=== PATIENT | female | born 2000 | race Caucasian/White ===

== ENCOUNTER 2023-06-19 21:21 | Outpatient (REF) | payer OTHER, SELFPAY ==
[2023-06-24 08:08] LABS: Age Gdln ACOG Testing Note (.); IGP, rfx Aptima HPV ASCU Note (.)
== END 2023-06-19 21:22 | disposition home or self-care (01) ==
LOC: LAB 21:21
PROVIDERS: Visit Provider Physician Assistant
DX: Z01.419 Encounter for gynecological examination (general) (routine) without abnormal findings (principal)
CPT/HCPCS: G0145

== ENCOUNTER 2023-12-10 10:18 | Outpatient (OUT) | payer OTHER, SELFPAY ==
--- NOTE | 2023-12-10 10:30 | ECG_ITS ---
[facility] Test Date: 2023-12-10 Pat Name: KECIA NOEL Department: Room: - Gender: Female Hiv Nurse: : 2000 Requested By: Kelsey Mcnair Order Number: [id number] Reading MD: ELIER HERNANDEZ Measurements Intervals [place] Rate: 84 P: 15 OR: 136 QRS: 73 QRSD: 96 T: 43 QT: 386 QTc: 456 Interpretive Statements SINUS RHYTHM INCOMPLETE RIGHT BUNDLE BRANCH BLOCK [90+ ms QRS DURATION, TERMINAL R IN V1/V2, 40+ ms S IN I/aVL/V4/V5/V6] No previous ECG available for comparison Electronically Signed On 12-10-2023 23:09:00 EDT by ELIER HERNANDEZ
== END 2023-12-10 10:19 | disposition home or self-care (01) ==
LOC: CARD 10:20
PROVIDERS: Visit Provider Family Medicine
DX: R42 Dizziness and giddiness (principal)
CPT/HCPCS: 93005

== ENCOUNTER 2024-01-02 07:57 | Outpatient (OUT) | payer OTHER, SELFPAY ==
--- NOTE | 2024-01-02 08:00 | CA_ITS ---
Patient Name: KECIA NOEL MR#: [id number] : 2000 Exam Date: 01/02/2024 Ordering Doctor: DR JASON DAVID ECHOCARDIOGRAM REPORT PROCEDURE: CA ECHO DOPPLER COMPLETE INDICATIONS: Abnormal ECG, tachycardia, dizziness, vape COMPARISON: None. DESCRIPTION: COMPLETE ECHOCARDIOGRAM Real-time transthoracic echocardiography with 2D, M-mode, spectral and color flow Doppler performed. QUALITY: Technically difficult due patient's condition 68 , 247#, BSA 2.24 m2, BP 128/74 LEFT VENTRICLE: Normal chamber size. Normal left ventricular wall thickness. LV EF: Global left ventricular systolic function is normal; visually estimated ejection fraction 60 to 65%. DIASTOLIC: Normal diastolic function. ATRIAL SEPTUM: Inadequately seen. LEFT ATRIUM: Normal chamber size. RIGHT ATRIUM: Normal chamber size. RIGHT VENTRICLE: Normal chamber size. Normal right ventricular systolic function. TRICUSPID VALVE: Normal mobility and thickness. No stenosis with no regurgitation. Unable to estimate right-sided pressures due to lack of measurable tricuspid regurgitation. MITRAL VALVE: Normal mobility and thickness. No evidence of mitral valve stenosis. There is no mitral annular calcification. Trivial mitral regurgitation. AORTIC VALVE: Normal trileaflet appearance. No visible sclerosis. Normal leaflet mobility. No evidence of aortic valve stenosis. No aortic regurgitation. AORTIC ROOT: Normal diameter and appearance. PULMONIC VALVE: Normal thickness and mobility. No stenosis. No regurgitation. PERICARDIUM: Anterior free space; trivial effusion versus fat pad. IVC: Not well visualized. CONCLUSION: 1. Global left ventricular systolic function is normal; visually estimated ejection fraction is 60 to 65% 2. Normal right ventricular size and systolic function 3. Normal diastolic function 4. No significant valvular abnormalities 5. Anterior free space; trivial effusion versus fat pad Adult Echocardiography Procedure Report Left Ventricle LVEDD (3.7 - 5.6 cm): 4.46 cm LVESD (2.2 - 4.0 cm): 2.76 cm LVIVS thickness (0.6 - 1.2 cm): 0.90 cm LVPW thickness (0.5 - 1.0 cm): 0.97 cm E - e': 3.80 LVOT Max Gradient: 3.34 mm[Hg] LVOT Area (cm2): 0.91 m/s Peak Velocity (LVOT): 0.91 m/s Mean Velocity (LVOT): 0.62 m/s LVOT Diameter 2.08 cm Left Atrium LA Volume Index (2D A2C): 20.71 ml/m2 Left Atrium Systolic Dimension: 3.52 cm Mitral Valve MV E to A Ratio: 1.62, 1.79 Right Ventricle Aorta AO Root Diam: 2.88 cm Aortic Valve AoV Area (Peak Greg): 2.70 cm2, 2.70 cm2 AoV Area (VTI): 2.71 cm2, 2.71 cm2 Peak Velocity(Antegrade Flow): 1.15 m/s Peak Gradient(Antegrade Flow): 5.27 mm[Hg] Mean Velocity(Antegrade Flow): 0.76 m/s Mean Gradient(Antegrade Flow): 2.72 mm[Hg] Velocity Time Integral: 21.96 cm Tricuspid Valve Pulmonic Valve Mean Gradient: 2.58 mm[Hg], 2.49 mm[Hg] Mean Velocity: 0.76 m/s, 0.74 m/s Peak Velocity: 1.00 m/s Peak Gradient: 3.98 mm[Hg], 4.20 mm[Hg], 4.20 mm[Hg] Right Atrium Right Atrium Systolic Pressure: 31.77 ml, 31.77 ml Dictated by: Lita Miguel M.D. on 01/03/2024 at 15:29 Approved by: Lita Miguel M.D. on 01/03/2024 at 15:32
== END 2024-01-02 07:58 | disposition home or self-care (01) ==
LOC: CARD 07:58
PROVIDERS: PCP Family Medicine; Visit Provider Family Medicine
DX: R42 Dizziness and giddiness (principal); R00.0 Tachycardia, unspecified; I45.10 Unspecified right bundle-branch block; R94.31 Abnormal electrocardiogram [ECG] [EKG]
CPT/HCPCS: 93246; 93306

== ENCOUNTER 2024-02-23 03:27 | Emergency (ER) | payer OTHER, SELFPAY ==
[2024-02-23] VITALS (17 sets, daily range): BP systolic 123–155; BP diastolic 73–89; PULSE 105–123; TEMP 37.1; O2SAT 94–98; BMI 39.5
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
--- NOTE | 2024-02-23 03:36 | ED.PSYCH1 ---
HPI - Psych General Chief Complaint: Psychiatric Symptoms Stated Complaint: POSS PANIC ATTACK Time Seen by Provider: 02/23/24 03:33 Source: Reports patient Mode of arrival: ambulance Limitations: Reports no limitations History of Present Illness HPI Narrative: history of anxiety for which she is prescribed prozac and seroquel. Admits she has not taken prozac in one month. [place] tingly before going to bed last PM . Woke up with heart racing . Brought to ER by [facility]. still anxious but feeling a little better. Does not feel she needs any thing at this time Related Data Allergies Allergy/AdvReac Type Severity Reaction Status Date / Time No Known Drug Allergies Allergy Verified 02/23/24 03:28 Review of Systems ROS Status of ROS 10 or more systems reviewed and unremarkable except as noted in history and below Exam Constitutional Vital Signs, click to edit/add: Last Vital Signs Temp 98.7 F 02/23/24 03:28 Pulse 107 H 02/23/24 05:01 Resp 22 H 02/23/24 05:01 BP 124/73 02/23/24 05:01 Pulse Ox 95 02/23/24 05:01 O2 Del Method Room Air 02/23/24 03:28 Common normals: no apparent distress, average body habitus, oriented x3, no limitations, healthy appearing, alert and well nourished [facility] Common normals: normocephalic and head/scalp atraumatic Eye Common normals: PERRL, EOMs intact bilaterally and conjunctivae normal Respiratory Common normals: normal respiratory effort, no retractions, no use of accessory muscles and clear to auscultation bilaterally Cardio Rate: tachycardic Extremity Common normals: normal to inspection and full ROM Neuro Common normals: oriented x3, CN's II-XII intact bilaterally, moves all extremities, no focal motor deficits and no sensory deficits noted Psych Appearance: grossly normal Course Vital Signs Vital signs: Vital Signs Temperature 98.7 F 02/23/24 03:28 Pulse Rate 119 H 02/23/24 03:28 Respiratory Rate 18 02/23/24 03:28 Blood Pressure 155/89 H 02/23/24 03:28 Pulse Oximetry 98 02/23/24 03:28 Oxygen Delivery Method Room Air 02/23/24 03:28 Temperature 98.7 F 02/23/24 03:28 Pulse Rate 107 H 02/23/24 05:01 Respiratory Rate 22 H 02/23/24 05:01 Blood Pressure 124/73 02/23/24 05:01 Pulse Oximetry 95 02/23/24 05:01 Oxygen Delivery Method Room Air 02/23/24 03:28 MDM - Psych MDM Narrative Medical decision making narrative: patient with past history of anxiety. awakened with heart racing and brought to ER by [facility]. [place] better after arriving to the ED and just observed as she did not want any medication. Re evaluated and feels she is better and would like to go home. Advised to take her mental health meds and discharged Discharge Plan Discharge Stand Alone Forms: Portal Instructions Chief Complaint: Psychiatric Symptoms Clinical Impression: Acute anxiety Patient Disposition: Home, Self-Care Mode of Transportation: Private Vehicle Print Language: [place] Leonean Instructions: Panic Disorder (ED) Referrals: JASON DAVID [Primary Care Provider] - 1 week
--- NOTE | 2024-02-23 04:03 | ECG_ITS ---
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
== END 2024-02-23 05:11 | disposition home or self-care (01) ==
PROVIDERS: Emergency Provider Internal Medicine; PCP Family Medicine
DX: F41.9 Anxiety disorder, unspecified (principal); Z79.899 Other long term (current) drug therapy
CPT/HCPCS: 93005; 99283

== ENCOUNTER 2024-07-14 22:05 | Outpatient (REF) | payer OTHER, SELFPAY ==
[2024-07-22 11:09] LABS: Age Gdln ACOG Testing Note (.); IGP, rfx Aptima HPV ASCU Note (.)
== END 2024-07-14 22:06 | disposition home or self-care (01) ==
LOC: LAB 22:05
PROVIDERS: PCP Family Medicine; Visit Provider Obstetrics & Gynecology
DX: Z01.419 Encounter for gynecological examination (general) (routine) without abnormal findings (principal)
CPT/HCPCS: 88175